=== PATIENT | female | born 1990 ===

== ENCOUNTER 2019-04-20 10:32 | Emergency (ER) | payer OTHER ==
--- NOTE | 2019-04-20 12:08 | UC ---
Ear Complaint HPI - HPI Summary HPI Summary: 28-year-old female with a left earache over the past day. No other symptoms - History of Current Complaint Chief Complaint: UCEar Stated Complaint: LT EAR COMPLAINT Time Seen by Provider: 04/20/19 11:33 Hx Obtained From: Patient Hx Last Menstrual Period: 03/30/19 ?: No Onset/Duration: Sudden Onset, Lasting Hours Severity Initially: Mild Severity Currently: Mild Pain Intensity: 3 Aggravating Factors: Nothing Alleviating Factors: Nothing - Allergies/Home Medications Allergies/Adverse Reactions: Allergies Allergy/AdvReac Type Severity Reaction Status Date / Time No Known Allergies Allergy Verified 04/20/19 11:36 Home Medications: Home Medications NK [No Home Medications Reported] 04/20/19 [History Confirmed 04/20/19] PMH/Surg Hx/FS Hx/Imm Hx Previously Healthy: Yes - Surgical History Surgical History: Yes Surgery Procedure, Year, and Place: appy - Family History Known Family History: Positive: Non-Contributory - Social History Lives: With Family Alcohol Use: None Substance Use Type: None Smoking Status (MU): Former Smoker Review of Systems All Other Systems Reviewed And Are Negative: Yes ENT: Positive: Ear Ache - Left earache last evening which she describes as a sharp pain and not continuous. Is Patient Immunocompromised?: No Physical Exam Triage Information Reviewed: Yes Appearance: Well-Appearing, No Pain Distress, Well-Nourished Vital Signs: Initial Vital Signs Temp 99.1 F 04/20/19 11:26 Pulse 77 04/20/19 11:26 Resp 16 04/20/19 11:26 BP 114/68 04/20/19 11:26 Pulse Ox 100 04/20/19 11:26 Vital Signs Reviewed: Yes Eyes: Positive: Conjunctiva Clear ENT: Positive: Hearing grossly normal, Pharynx normal, TMs normal, Uvula midline Neck: Positive: Supple, Nontender, No Lymphadenopathy Respiratory: Positive: Lungs clear, Normal breath sounds, No respiratory distress, No accessory muscle use Cardiovascular: Positive: RRR, No Murmur, Pulses Normal, Brisk Capillary Refill Musculoskeletal Exam: Normal Neurological Exam: Normal Psychological Exam: Normal Skin Exam: Normal Ear Complaint Course/Dx - Course Course Of Treatment: Patient is comfortable here and nontoxic. I don't find any evidence of an ear infection. - Differential Dx/Diagnosis Provider Diagnosis: Otalgia, left ear Discharge ED - Sign-Out/Discharge Documenting (check all that apply): Patient Departure All imaging exams completed and their final reports reviewed: No Studies - Discharge Plan Condition: Good Disposition: HOME Patient Education Materials: Earache (ED) Referrals: No Primary Care Phys,NOPCP [Primary Care Provider] - [facility] [Outside] Additional Instructions: May take Tylenol every 4 hours and Motrin every 8 hours for pain. Recheck if you have continued ear pain over the next 3-4 days. - Billing Disposition and Condition Condition: GOOD Disposition: Home
== END 2019-04-20 12:15 | disposition home or self-care (01) ==
LOC: UCCORT 10:32
DX: H92.02 Otalgia, left ear (principal); Z87.891 Personal history of nicotine dependence
CPT/HCPCS: 99201; G0463

== ENCOUNTER 2019-06-11 17:44 | Emergency (ER) | payer OTHER | END 2019-06-11 20:07 | disposition left against medical advice (07) | LOC: UCCORT 17:44 | DX: Z53.21 Procedure and treatment not carried out due to patient leaving prior to being seen by health care provider (principal) ==